=== PATIENT | male | born 1960 | race Caucasian/White ===

== ENCOUNTER → 2017-03-20 | Day surgery (SDC) | payer BC ==
[~2017-03-20] MED LIST: Lactated Ringers 1,000 ML IV SCH; Propofol 200 MG/20 ML SDV IV ONE
[2017-03-20 08:46] VITALS: BP 129/73
--- NOTE | 2017-03-20 11:16 | OR ---
DATE OF OPERATION: 03/20/2017 PREOPERATIVE DIAGNOSIS: CHRONIC GASTROESOPHAGEAL REFLUX DISEASE. POSTOPERATIVE DIAGNOSIS: CHRONIC GASTROESOPHAGEAL REFLUX DISEASE. SURGEON: Rojas Pickard MD PROCEDURE: EGD WITH BIOPSIES X5, BLAIR. 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 COMPLICATIONS: None. SPECIMEN: 1. Antral biopsy x3. 2. BLAIR. 3. Fundal polyp. 4. Distal esophagus x1. FINDINGS: 1. Full-length EGD. 2. Antral gastritis moderate without ulceration or erosion. 3. Chronic GERD with short-segment Saenz's changes. 4. Adenomatous polyp, fundus. RECOMMENDATIONS: Medical followup with Dr. Metz. The patient should remain or be started on proton pump therapy at this time. INDICATIONS: The patient has been having some ongoing issues with reflux. Dr. Metz sent him for EGD. DESCRIPTION OF PROCEDURE: The patient was prepped and draped, placed in the left lateral decubitus position. A lubricated Olympus gastroscope was inserted, advanced to the cricopharyngeus area, and easily intubated in the esophagus. Esophageal lining was benign in its entire course. The Z-line was crisp and sharp at 40 cm. No hernia was seen. There was a spontaneous reflux visualized in one area of possible short segment Saenz's changes. Biopsy of that area was taken. Scope was advanced into the stomach through the pylorus into the third portion of the duodenum. Second and third portion of duodenum along with the duodenal bulb were completely benign. The scope was brought back into the stomach and retroflexed. The upper fundus and cardia were unremarkable. In the mid portion of the fundus, there was one small adenomatous polyp removed in its entirety with cold forceps. The rest of the fundus and cardia were evaluated thoroughly. No other polyps, masses or ulcerations were seen. The patient does have moderate chronic-appearing gastritis of the entire antrum. Three biopsies were taken along with a BLAIR test. Air was then suctioned from the stomach and scope removed without complication. RIZWAN/JUAN MANUEL /[id number]
== END ==
LOC: CC.SDS 06:43
PROVIDERS: ATTEND Family Medicine
DX: K29.50 Unspecified chronic gastritis without bleeding (principal); K22.8 Other specified diseases of esophagus; K31.89 Other diseases of stomach and duodenum; Z88.1 Allergy status to other antibiotic agents; Z88.8 Allergy status to other drugs, medicaments and biological substances; Z79.899 Other long term (current) drug therapy
CPT/HCPCS: 43239; 87081; J2704; J7120